=== PATIENT | male | born 1950 | race Caucasian/White ===

== ENCOUNTER 2021-03-26 22:20 | Inpatient (IN) ==
[2021-03-26] MEDS ORDERED: DILTIAZEM 25 MG/5 ML VIAL IV ONE (22:43)
[2021-03-26] MEDS ORDERED: AMIODARONE 150 MG/3 ML VIAL ONE (22:48)
[2021-03-26] MEDS ORDERED: DILTIAZEM 50 MG/10 ML VIAL IV STA (22:50)
[2021-03-26 22:51] LABS: Basophils # 0.1 10*3/uL (0.0-0.2); Basophils % 0.6 % (0.0-0.8); Eosinophils # 0.2 10*3/uL (0.0-0.87); Eosinophils % 1.6 % (0.00-10.9); Hematocrit 49.4 VOL% (42.0-52.0); Hemoglobin 16.3 GM/DL (14.0-18.0); Immature Granulocytes % 1.7 %; Immature Granulocytes Absolute 0.17 #; Lymphocytes # 1.4 10*3/uL (1.4-4.0); Lymphocytes % 13.8 % (21.2-54.2); Mean Corpuscular Volume 95.6 FL (87-102); Mean Platelet Volume 11.4 FL (9.6-12.0); Neutrophils % 74.3 % (38.7-73.9); Platelet Count 198 T/CUMM (130-400); Red Blood Count 5.17 MC/CUMM (3.8-5.5); Red Cell Distribution Width 13.2 % (9.3-17.3); White Blood Count 9.9 T/CUMM (4-12)
[2021-03-26] MEDS ORDERED: AMIODARONE INJ 150 MG in DEXTROSE 5% 100 ML IV ONE (22:53)
[2021-03-26] MEDS ORDERED: SODIUM CHLORIDE 0.9% 1,000 ML IV STA (22:58)
[2021-03-26] MEDS ORDERED: AMIODARONE INJ 450 MG in DEXTROSE 5% 241 ML IV SCH (23:00)
[2021-03-26] MEDS ORDERED: AMIODARONE INJ 300 MG in DEXTROSE 5% 100 ML IV ONE (23:00)
[2021-03-26 23:13] LABS: Albumin 3.7 G/DL (3.4-5.0); Bilirubin,Total 0.8 MG/DL (0.20-1.00); Calcium 9.7 MG/DL (8.5-10.1); Osmolality,Calculated 282.7 MOS/KG (273-304); Total Protein 7.8 G/DL (6.4-8.2)
[2021-03-26] MEDS ORDERED: ENOXAPARIN 30 MG/0.3 ML SYRINGE SUBCUT STA (23:51)
[2021-03-26] MEDS ORDERED: ENOXAPARIN 100 MG/ML SYRINGE SUBCUT STA (23:52)
[2021-03-27 00:37] LABS: INR 1.1; PT Patient Result 11.7 SECS (10.5-12.0); Partial Thromboplastin Time 27.9 SECS (23.8-32.1)
[2021-03-27] MEDS ORDERED: MORPHINE 2 MG/1 ML SYRINGE IV STA (01:03)
[2021-03-27] MEDS ORDERED: MORPHINE 2 MG/1 ML SYRINGE ONE (01:04)
[2021-03-27] MEDS ORDERED: ACETAMINOPHEN 325 MG TABLET PO PRN (01:23)
[2021-03-27] MEDS ORDERED: GLUCAGON 1 MG VIAL IM PRN (01:23)
[2021-03-27] MEDS ORDERED: ONDANSETRON 4 MG/2 ML VIAL IV PRN (01:23)
[2021-03-27] MEDS ORDERED: SIMETHICONE CHEW 125 MG TABLET PO PRN (01:23)
[2021-03-27] MEDS ORDERED: DEXTROSE 50% 25 GM/50 ML SYRINGE IV PRN (01:34)
[2021-03-27 04:21] LABS: Basophils # 0.1 10*3/uL (0.0-0.2); Basophils % 0.7 % (0.0-0.8); Eosinophils # 0.2 10*3/uL (0.0-0.87); Eosinophils % 1.9 % (0.00-10.9); Hematocrit 44.6 VOL% (42.0-52.0); Hemoglobin 14.4 GM/DL (14.0-18.0); Immature Granulocytes % 1.9 %; Lymphocytes # 1.8 10*3/uL (1.4-4.0); Lymphocytes % 16.5 % (21.2-54.2); Mean Corpuscular HGB Conc 32.3 GM/DL (32-36); Mean Corpuscular Volume 97.2 FL (87-102); Mean Platelet Volume 11.8 FL (9.6-12.0); Monocytes % 9.4 % (1.7-12.7); Neutrophils % 69.6 % (38.7-73.9); Platelet Count 165 T/CUMM (130-400); Red Blood Count 4.59 MC/CUMM (3.8-5.5); Red Cell Distribution Width 13.5 % (9.3-17.3); White Blood Count 10.8 T/CUMM (4-12)
[2021-03-27] MEDS ORDERED: AMIODARONE INJ 450 MG in DEXTROSE 5% 241 ML IV SCH (05:00)
[2021-03-27 05:05] LABS: Osmolality,Calculated 280.5 MOS/KG (273-304); Potassium 3.9 MMOL/L (3.5-5.1); Risk Ratio 4.29; Thyroid Stimulating Hormone 2.64 uIU/ml (0.358-3.74)
[2021-03-27 05:51] LABS: Bacteria,Urine Occasional /HPF (Few); Bilirubin,Urine Negative (Negative); Blood, Urine Moderate mg/dL (Negative); Glucose,Urine (UA) Negative (Negative); Hyaline Casts,Urine 1 /LPF (0-3); Ketones,Urine Negative (Negative); Mucus,Urine Occasional /LPF (Occasional); Nitrite,Urine Negative (Negative); Protein,Urine Negative; RBC,Urine 32 /HPF (0-4); Squamous Epithelial Cell,Urine Occasional /HPF (0-10); Urine Appearance CLEAR (Clear); Urine Color Yellow (Yellow); Urine Specific Gravity 1.015 (1.001-1.035); Urine Urobilinogen < 2.0 EU/DL (0.2-1.0)
[2021-03-27] MEDS: INSULIN REGULAR 100 UNIT/ML SUBCUT SCH ×4 (07:34→20:55)
[2021-03-27] MEDS ORDERED: DIAZEPAM 5 MG TABLET PO ONE (07:54)
[2021-03-27] MEDS ORDERED: diphenhydrAMINE CAP 25 MG CAPSULE PO ONE (07:54)
[2021-03-27] MEDS ORDERED: SODIUM CHLORIDE 0.45% 1,000 ML IV SCH (08:00)
[2021-03-27] MEDS ORDERED: NITROGLYCERIN SL 0.4 MG TABLET SL PRN (08:40)
[2021-03-27] MEDS ORDERED: ASCORBIC ACID 500 MG TABLET PO SCH (09:00)
[2021-03-27] MEDS: SOTALOL 80 MG TABLET PO SCH ×2 (09:33→20:36)
[2021-03-27] MEDS: ASCORBIC ACID 500 MG TABLET PO SCH ×2 (09:33→20:37)
[2021-03-27] MEDS: OLMESARTAN 20 MG TABLET PO SCH (09:34)
[2021-03-27] MEDS: DOCUSATE SODIUM 100 MG CAPSULE PO SCH ×2 (09:34→20:37)
[2021-03-27] MEDS: PANTOPRAZOLE 40 MG TABLET PO SCH (09:34)
[2021-03-27] MEDS: ASPIRIN EC 81 MG TABLET PO SCH (09:34)
[2021-03-27] MEDS: amLODIPine 5 MG TABLET PO SCH (09:35)
[2021-03-27] MEDS ORDERED: LIDOCAINE 1%/EPI INJ 20 ML VIAL ONE (12:42)
[2021-03-27] MEDS ORDERED: HEPARIN/NACL 0.9% 2 UNITS/ML 2,000 UNIT/1,000 ML BAG IV ONE (12:42)
[2021-03-27] MEDS ORDERED: LIDOCAINE 1% 20 ML VIAL ONE (12:44)
[2021-03-27] MEDS ORDERED: VERAPAMIL 5 MG/2 ML VIAL ONE (13:08)
[2021-03-27] MEDS ORDERED: fentaNYL 100 MCG/2 ML VIAL ONE (13:08)
[2021-03-27] MEDS ORDERED: NITROGLYCERIN DRIP 50 MG/250 ML BOTTLE IV ONE (13:08)
[2021-03-27] MEDS ORDERED: MIDAZOLAM 2 MG/2 ML VIAL ONE (13:08)
[2021-03-27] MEDS ORDERED: ENOXAPARIN 60 MG/0.6 ML SYRINGE ONE (13:28)
[2021-03-27] MEDS: ATORVASTATIN 40 MG TABLET PO SCH (20:37)
[2021-03-27] MEDS: PRAMIPEXOLE 0.25 MG TABLET PO SCH (21:23)
[2021-03-28 05:28] LABS: Basophils # 0.1 10*3/uL (0.0-0.2); Basophils % 0.8 % (0.0-0.8); Eosinophils # 0.2 10*3/uL (0.0-0.87); Eosinophils % 2.5 % (0.00-10.9); Hematocrit 46.3 VOL% (42.0-52.0); Hemoglobin 15.3 GM/DL (14.0-18.0); Immature Granulocytes % 1.8 %; Immature Granulocytes Absolute 0.15 #; Lymphocytes # 1.5 10*3/uL (1.4-4.0); Lymphocytes % 17.6 % (21.2-54.2); Mean Corpuscular Volume 98.1 FL (87-102); Mean Platelet Volume 11.9 FL (9.6-12.0); Monocytes % 8.5 % (1.7-12.7); Neutrophils % 68.8 % (38.7-73.9); Platelet Count 176 T/CUMM (130-400); Red Blood Count 4.72 MC/CUMM (3.8-5.5); Red Cell Distribution Width 13.4 % (9.3-17.3); White Blood Count 8.2 T/CUMM (4-12)
[2021-03-28 05:56] LABS: Calcium 8.8 MG/DL (8.5-10.1); Osmolality,Calculated 279.5 MOS/KG (273-304); Potassium 3.7 MMOL/L (3.5-5.1)
[2021-03-28] MEDS: amLODIPine 5 MG TABLET PO SCH (09:40)
[2021-03-28] MEDS: DOCUSATE SODIUM 100 MG CAPSULE PO SCH ×2 (09:40→20:31)
[2021-03-28] MEDS: PANTOPRAZOLE 40 MG TABLET PO SCH (09:40)
[2021-03-28] MEDS: SOTALOL 80 MG TABLET PO SCH ×2 (09:40→20:28)
[2021-03-28] MEDS: OLMESARTAN 20 MG TABLET PO SCH (09:40)
[2021-03-28] MEDS: ASCORBIC ACID 500 MG TABLET PO SCH ×2 (09:40→20:29)
[2021-03-28] MEDS: ASPIRIN EC 81 MG TABLET PO SCH (09:41)
[2021-03-28] MEDS: INSULIN REGULAR 100 UNIT/ML SUBCUT SCH ×4 (09:43→20:29)
[2021-03-28] MEDS: ATORVASTATIN 40 MG TABLET PO SCH (20:28)
[2021-03-28] MEDS: PRAMIPEXOLE 0.25 MG TABLET PO SCH (20:29)
[2021-03-29 05:30] LABS: Basophils # 0.1 10*3/uL (0.0-0.2); Basophils % 0.6 % (0.0-0.8); Eosinophils # 0.2 10*3/uL (0.0-0.87); Eosinophils % 2.1 % (0.00-10.9); Hemoglobin 14.5 GM/DL (14.0-18.0); Immature Granulocytes % 1.6 %; Immature Granulocytes Absolute 0.13 #; Lymphocytes # 1.5 10*3/uL (1.4-4.0); Mean Corpuscular HGB Conc 32.2 GM/DL (32-36); Mean Corpuscular Volume 97.4 FL (87-102); Mean Platelet Volume 11.9 FL (9.6-12.0); Monocytes % 7.9 % (1.7-12.7); Neutrophils % 68.8 % (38.7-73.9); Platelet Count 165 T/CUMM (130-400); Red Blood Count 4.62 MC/CUMM (3.8-5.5); Red Cell Distribution Width 13.3 % (9.3-17.3); White Blood Count 8.1 T/CUMM (4-12)
[2021-03-29 05:46] LABS: Albumin 3.2 G/DL (3.4-5.0); Bilirubin,Total 1.2 MG/DL (0.20-1.00); Calcium 9.1 MG/DL (8.5-10.1); Osmolality,Calculated 282.5 MOS/KG (273-304); Potassium 3.4 MMOL/L (3.5-5.1); Total Protein 7.2 G/DL (6.4-8.2)
[2021-03-29] MEDS: SOTALOL 80 MG TABLET PO SCH ×2 (09:48→20:30)
[2021-03-29] MEDS: amLODIPine 5 MG TABLET PO SCH (09:48)
[2021-03-29] MEDS: PANTOPRAZOLE 40 MG TABLET PO SCH (09:48)
[2021-03-29] MEDS: OLMESARTAN 20 MG TABLET PO SCH (09:48)
[2021-03-29] MEDS: POTASSIUM CHLORIDE 20 MEQ TABLET PO PRN ×3 (09:49→13:17)
[2021-03-29] MEDS: ASCORBIC ACID 500 MG TABLET PO SCH ×2 (09:49→20:30)
[2021-03-29] MEDS: INSULIN REGULAR 100 UNIT/ML SUBCUT SCH ×4 (09:50→20:35)
[2021-03-29] MEDS: ASPIRIN EC 81 MG TABLET PO SCH (10:58)
[2021-03-29] MEDS: DOCUSATE SODIUM 100 MG CAPSULE PO SCH ×2 (10:59→20:34)
[2021-03-29] MEDS: ATORVASTATIN 40 MG TABLET PO SCH (20:30)
[2021-03-29] MEDS: PRAMIPEXOLE 0.25 MG TABLET PO SCH (20:30)
[2021-03-30 05:32] LABS: Basophils # 0.1 10*3/uL (0.0-0.2); Eosinophils # 0.2 10*3/uL (0.0-0.87); Eosinophils % 1.9 % (0.00-10.9); Hematocrit 46.8 VOL% (42.0-52.0); Hemoglobin 15.1 GM/DL (14.0-18.0); Immature Granulocytes % 1.5 %; Immature Granulocytes Absolute 0.13 #; Lymphocytes # 1.4 10*3/uL (1.4-4.0); Lymphocytes % 16.3 % (21.2-54.2); Mean Corpuscular HGB Conc 32.3 GM/DL (32-36); Mean Corpuscular Volume 97.7 FL (87-102); Mean Platelet Volume 11.8 FL (9.6-12.0); Monocytes % 8.3 % (1.7-12.7); Platelet Count 165 T/CUMM (130-400); Red Blood Count 4.79 MC/CUMM (3.8-5.5); Red Cell Distribution Width 13.2 % (9.3-17.3); White Blood Count 8.4 T/CUMM (4-12)
[2021-03-30 06:05] LABS: Albumin 3.2 G/DL (3.4-5.0); Bilirubin,Total 1.1 MG/DL (0.20-1.00); Calcium 9.9 MG/DL (8.5-10.1); Osmolality,Calculated 281.4 MOS/KG (273-304); Potassium 3.8 MMOL/L (3.5-5.1); Total Protein 7.3 G/DL (6.4-8.2)
[2021-03-30] MEDS: INSULIN REGULAR 100 UNIT/ML SUBCUT SCH ×4 (11:30→22:02)
[2021-03-30] MEDS: ASPIRIN EC 81 MG TABLET PO SCH (11:31)
[2021-03-30] MEDS: SOTALOL 80 MG TABLET PO SCH ×2 (11:31→21:58)
[2021-03-30] MEDS: OLMESARTAN 20 MG TABLET PO SCH (11:31)
[2021-03-30] MEDS: CLOPIDOGREL 75 MG TABLET PO SCH (11:33)
[2021-03-30] MEDS: PANTOPRAZOLE 40 MG TABLET PO SCH (11:33)
[2021-03-30] MEDS: ASCORBIC ACID 500 MG TABLET PO SCH ×2 (11:33→21:58)
[2021-03-30] MEDS: DOCUSATE SODIUM 100 MG CAPSULE PO SCH ×2 (11:37→21:59)
[2021-03-30] MEDS: ENOXAPARIN 40 MG/0.4 ML SYRINGE SUBCUT SCH (11:37)
[2021-03-30] MEDS: amLODIPine 10 MG TABLET PO SCH (11:37)
[2021-03-30] MEDS: PRAMIPEXOLE 0.25 MG TABLET PO SCH (21:58)
[2021-03-30] MEDS: ATORVASTATIN 40 MG TABLET PO SCH (21:58)
[2021-03-31 06:14] LABS: Basophils # 0.1 10*3/uL (0.0-0.2); Eosinophils # 0.1 10*3/uL (0.0-0.87); Eosinophils % 1.5 % (0.00-10.9); Hematocrit 47.7 VOL% (42.0-52.0); Hemoglobin 15.6 GM/DL (14.0-18.0); Immature Granulocytes % 1.6 %; Immature Granulocytes Absolute 0.15 #; Lymphocytes # 1.2 10*3/uL (1.4-4.0); Lymphocytes % 12.6 % (21.2-54.2); Mean Corpuscular HGB Conc 32.7 GM/DL (32-36); Mean Corpuscular Volume 98.8 FL (87-102); Neutrophils % 75.3 % (38.7-73.9); Platelet Count 171 T/CUMM (130-400); Red Blood Count 4.83 MC/CUMM (3.8-5.5); Red Cell Distribution Width 13.2 % (9.3-17.3); White Blood Count 9.4 T/CUMM (4-12)
[2021-03-31 06:32] LABS: Albumin 3.3 G/DL (3.4-5.0); Bilirubin,Total 0.7 MG/DL (0.20-1.00); Calcium 9.4 MG/DL (8.5-10.1); Osmolality,Calculated 275.8 MOS/KG (273-304); Potassium 3.7 MMOL/L (3.5-5.1); Total Protein 7.4 G/DL (6.4-8.2)
[2021-03-31] MEDS: INSULIN REGULAR 100 UNIT/ML SUBCUT SCH ×4 (08:10→21:08)
[2021-03-31] MEDS: ASPIRIN EC 81 MG TABLET PO SCH (09:20)
[2021-03-31] MEDS: amLODIPine 10 MG TABLET PO SCH (09:20)
[2021-03-31] MEDS: DOCUSATE SODIUM 100 MG CAPSULE PO SCH ×2 (09:21→21:08)
[2021-03-31] MEDS: PANTOPRAZOLE 40 MG TABLET PO SCH (09:21)
[2021-03-31] MEDS: CLOPIDOGREL 75 MG TABLET PO SCH (09:21)
[2021-03-31] MEDS: OLMESARTAN 20 MG TABLET PO SCH (09:21)
[2021-03-31] MEDS: ASCORBIC ACID 500 MG TABLET PO SCH ×2 (09:21→20:17)
[2021-03-31] MEDS: SOTALOL 80 MG TABLET PO SCH ×2 (09:21→20:17)
[2021-03-31] MEDS: ENOXAPARIN 40 MG/0.4 ML SYRINGE SUBCUT SCH (09:22)
[2021-03-31] MEDS: PRAMIPEXOLE 0.25 MG TABLET PO SCH (20:17)
[2021-03-31] MEDS: ATORVASTATIN 40 MG TABLET PO SCH (20:17)
[2021-04-01 06:01] LABS: Basophils # 0.1 10*3/uL (0.0-0.2); Eosinophils # 0.1 10*3/uL (0.0-0.87); Eosinophils % 1.5 % (0.00-10.9); Hematocrit 48.5 VOL% (42.0-52.0); Hemoglobin 15.8 GM/DL (14.0-18.0); Immature Granulocytes Absolute 0.19 #; Lymphocytes # 1.4 10*3/uL (1.4-4.0); Lymphocytes % 14.4 % (21.2-54.2); Mean Corpuscular HGB Conc 32.6 GM/DL (32-36); Mean Platelet Volume 11.5 FL (9.6-12.0); Monocytes % 9.5 % (1.7-12.7); Neutrophils % 71.6 % (38.7-73.9); Platelet Count 156 T/CUMM (130-400); Red Cell Distribution Width 13.3 % (9.3-17.3); White Blood Count 9.5 T/CUMM (4-12)
[2021-04-01 06:21] LABS: Albumin 3.4 G/DL (3.4-5.0); Bilirubin,Total 1.8 MG/DL (0.20-1.00); Calcium 10.1 MG/DL (8.5-10.1); Osmolality,Calculated 279.5 MOS/KG (273-304); Potassium 4.7 MMOL/L (3.5-5.1); Total Protein 7.8 G/DL (6.4-8.2)
[2021-04-01] MEDS: INSULIN REGULAR 100 UNIT/ML SUBCUT SCH ×4 (08:02→20:08)
[2021-04-01] MEDS: SOTALOL 80 MG TABLET PO SCH ×2 (08:59→20:06)
[2021-04-01] MEDS: OLMESARTAN 20 MG TABLET PO SCH (08:59)
[2021-04-01] MEDS: DOCUSATE SODIUM 100 MG CAPSULE PO SCH ×2 (09:00→20:07)
[2021-04-01] MEDS: PANTOPRAZOLE 40 MG TABLET PO SCH (09:00)
[2021-04-01] MEDS: ASCORBIC ACID 500 MG TABLET PO SCH ×2 (09:00→20:06)
[2021-04-01] MEDS: CLOPIDOGREL 75 MG TABLET PO SCH (09:00)
[2021-04-01] MEDS: amLODIPine 10 MG TABLET PO SCH (09:00)
[2021-04-01] MEDS: ASPIRIN EC 81 MG TABLET PO SCH (09:00)
[2021-04-01] MEDS: ENOXAPARIN 40 MG/0.4 ML SYRINGE SUBCUT SCH (09:01)
[2021-04-01] MEDS ORDERED: SODIUM CHLORIDE 0.45% 1,000 ML IV SCH (12:00)
[2021-04-01] MEDS ORDERED: LIDOCAINE 1%/EPI INJ 20 ML VIAL ONE (12:22)
[2021-04-01] MEDS ORDERED: HEPARIN/NACL 0.9% 2 UNITS/ML 2,000 UNIT/1,000 ML BAG IV ONE (12:22)
[2021-04-01] MEDS ORDERED: DIAZEPAM 5 MG TABLET PO ONE (13:00)
[2021-04-01] MEDS ORDERED: diphenhydrAMINE CAP 25 MG CAPSULE PO ONE (13:00)
[2021-04-01] MEDS ORDERED: fentaNYL 100 MCG/2 ML VIAL ONE (13:19)
[2021-04-01] MEDS ORDERED: MIDAZOLAM 2 MG/2 ML VIAL ONE (13:19)
[2021-04-01] MEDS ORDERED: ENOXAPARIN 60 MG/0.6 ML SYRINGE ONE (13:47)
[2021-04-01] MEDS ORDERED: TIROFIBAN 5,000 MCG/100 ML PREMIX IV ONE (13:50)
[2021-04-01] MEDS ORDERED: CLOPIDOGREL 300 MG TABLET ONE (14:27)
[2021-04-01] MEDS ORDERED: HYDROmorphone 2 MG/1 ML VIAL IV PRN (15:30)
[2021-04-01] MEDS: PRAMIPEXOLE 0.25 MG TABLET PO SCH (20:07)
[2021-04-01] MEDS ORDERED: ATORVASTATIN 40 MG TABLET PO SCH (21:00)
[2021-04-02 06:18] LABS: Basophils # 0.1 10*3/uL (0.0-0.2); Basophils % 0.7 % (0.0-0.8); Eosinophils # 0.2 10*3/uL (0.0-0.87); Eosinophils % 1.8 % (0.00-10.9); Hematocrit 45.7 VOL% (42.0-52.0); Hemoglobin 14.7 GM/DL (14.0-18.0); Immature Granulocytes % 1.8 %; Immature Granulocytes Absolute 0.15 #; Lymphocytes # 1.3 10*3/uL (1.4-4.0); Lymphocytes % 15.9 % (21.2-54.2); Mean Corpuscular HGB Conc 32.2 GM/DL (32-36); Mean Corpuscular Volume 98.1 FL (87-102); Monocytes % 9.9 % (1.7-12.7); Neutrophils % 69.9 % (38.7-73.9); Platelet Count 148 T/CUMM (130-400); Red Blood Count 4.66 MC/CUMM (3.8-5.5); Red Cell Distribution Width 13.6 % (9.3-17.3); White Blood Count 8.2 T/CUMM (4-12)
[2021-04-02 06:41] LABS: Albumin 3.2 G/DL (3.4-5.0); Bilirubin,Total 1.8 MG/DL (0.20-1.00); Calcium 9.6 MG/DL (8.5-10.1); Osmolality,Calculated 277.7 MOS/KG (273-304); Potassium 3.6 MMOL/L (3.5-5.1)
[2021-04-02] MEDS: INSULIN REGULAR 100 UNIT/ML SUBCUT SCH ×2 (07:37→13:31)
[2021-04-02] MEDS: OLMESARTAN 20 MG TABLET PO SCH (09:44)
[2021-04-02] MEDS: PANTOPRAZOLE 40 MG TABLET PO SCH (09:44)
[2021-04-02] MEDS: CLOPIDOGREL 75 MG TABLET PO SCH (09:44)
[2021-04-02] MEDS: amLODIPine 10 MG TABLET PO SCH (09:44)
[2021-04-02] MEDS: SOTALOL 80 MG TABLET PO SCH (09:44)
[2021-04-02] MEDS: DOCUSATE SODIUM 100 MG CAPSULE PO SCH (09:44)
[2021-04-02] MEDS: ASPIRIN EC 81 MG TABLET PO SCH (09:45)
[2021-04-02] MEDS: ASCORBIC ACID 500 MG TABLET PO SCH (09:45)
[2021-04-02 12:20] VITALS: BP 131/75
== END 2021-04-02 12:15 | disposition home health service (06) | DRG 246 ==
LOC: N.ED 22:20 → SUATTDRO 03-27 01:23 → N.EDINP 03-27 01:23 → N.TELEN 03-27 14:58
PROVIDERS: ADMIT Internal Medicine; ATTEND Emergency Medicine
PROC: CLCCHCL (ICD-10-PCS; 2021-03-27 13:45)